=== PATIENT | female | born 1985 | race Caucasian/White ===

== ENCOUNTER 2018-07-14 14:54 | Emergency (ER) | payer BC, OTHER ==
[2018-07-14] MEDS ORDERED: Sodium Chloride 0.9% 1,000 ML ONE (15:30)
== END 2018-07-14 15:49 | disposition short-term general hospital (02) ==
LOC: MADERS 14:54
DX: O42.113 Preterm premature rupture of membranes, onset of labor more than 24 hours following rupture, third trimester (principal); Z3A.31 31 weeks gestation of pregnancy
CPT/HCPCS: 99284; J7050

== ENCOUNTER 2019-06-28 16:33 | Emergency (ER) | payer OTHER ==
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
== END 2019-06-28 18:00 | disposition home or self-care (01) ==
LOC: MADERS 16:33
DX: S13.9XXA Sprain of joints and ligaments of unspecified parts of neck, initial encounter (principal); V89.2XXA Person injured in unspecified motor-vehicle accident, traffic, initial encounter
CPT/HCPCS: 72125

== ENCOUNTER 2019-07-15 09:51 | Outpatient (CLI) | payer OTHER ==
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
== END 2019-07-15 09:52 | disposition home or self-care (01) ==
LOC: MADRAD 09:51
PROVIDERS: ATTEND Family Medicine
DX: S29.012A Strain of muscle and tendon of back wall of thorax, initial encounter (principal)
CPT/HCPCS: 72050; 72070; 72100

== ENCOUNTER 2020-08-21 18:52 | Emergency (ER) | payer BC ==
[2020-08-21 19:21] LABS: Clarity Slightly Cloudy (Clear)
[2020-08-21 19:29] LABS: Leukocyte Unable to Interpret (Negative); Nitrite Unable to Interpret (Negative)
[2020-08-21 19:30] LABS: Bilirubin Unable to Interpret (Negative); Blood, Urine Unable to Interpret (Negative); Glucose, Urine (Dipstick) Unable to Interpret mg/dL (Negative); Ketone, Urine Unable to Interpret mg/dL (Negative); Protein, Urine (Dipstick) Unable to Interpret mg/dL (Neg-Trace); Urobilinogen UNABLE TO INTERPRET mg/dL (Less than 2)
[2020-08-21 19:32] LABS: Bacteria/HPF 1+ HPF (None Seen); RBC/HPF Greater than 50 HPF (0-3); Squamous Epithelial None Seen HPF (0-3); WBC/HPF 21-50 HPF (0-3)
[2020-08-21 19:33] LABS: Pregnancy Test - Urine (BHCG) Negative (Negative); Pregu Control Background? CLEAR/WHITE (CLR/WHITE); Pregu Control Bar Appear? YES (CONTROL BAR)
[2020-08-21] MEDS ORDERED: Ketorolac Tromethamine 60 MG/2 ML VIAL ONE (19:48)
[2020-08-21] MEDS ORDERED: cefTRIAXone\\ROCEPHIN 1 GM VIAL ONE (19:49)
[2020-08-21] MEDS ORDERED: Lidocaine 1% w/Epinephrine 1:100K 20 ML VIAL ONE (19:49)
== END 2020-08-21 20:19 | disposition home or self-care (01) ==
LOC: MADERS 18:52
DX: N39.0 Urinary tract infection, site not specified (principal); G43.909 Migraine, unspecified, not intractable, without status migrainosus
CPT/HCPCS: 81003; 81015; 81025; 96372; 99283; J0696; J1885